=== PATIENT | female | born 1995 | race Caucasian/White ===

== ENCOUNTER 2021-09-25 06:32 | Emergency (ER) | payer SELFPAY ==
[2021-09-25 06:45] VITALS: TEMP 98.1; BMI 26.5
[2021-09-25] MEDS ORDERED: SODIUM CHLORIDE 1,000 ML IV STA (07:29)
[2021-09-25 08:34] LABS: BASO % 0.7 % (0-2.0); EOS % 0.2 % (0-4.5); HEMATOCRIT 41.7 % (32.4-45.2); HEMOGLOBIN 13.9 GM/dL (10.7-15.3); LYMPH % 17.5 % (8-40); MCH 28.9 pg (25.7-33.7); MCHC 33.2 g/dl (32.0-36.0); MEAN PLT VOLUME 8.3 fl (7.5-11.1); MONO % 7.5 % (3.8-10.2); NEUT % 74.1 % (42.8-82.8); PLATELET COUNT 244 10^3/uL (134-434); RBC 4.79 M/mm3 (3.60-5.2); RDW 13.2 % (11.6-15.6); WHITE BLOOD COUNT 8.4 K/mm3 (4.0-10.0)
[2021-09-25 08:43] LABS: INR 1.15 (0.83-1.09); PROTHROMBIN TIME (PATIENT) 13.3 SEC (9.7-13.0)
[2021-09-25 08:58] LABS: ACTIVATED PTT 34.5 SECONDS (25.2-36.5)
[2021-09-25 09:00] LABS: CALCIUM 9.3 mg/dL (8.5-10.1)
[2021-09-25 09:01] LABS: ALBUMIN 3.9 g/dl (3.4-5.0); BLOOD UREA NITROGEN 9.3 mg/dL (7-18)
[2021-09-25 09:04] LABS: CREATININE 0.6 mg/dL (0.55-1.3)
[2021-09-25 09:05] LABS: TOT PROT 7.2 g/dl (6.4-8.2)
[2021-09-25 09:06] LABS: BILIRUBIN,TOTAL 0.4 mg/dL (0.2-1)
[2021-09-25 09:44] LABS: EPI CELLS >36 /uL (0-25.1); HYALINE CASTS 0 /uL (0-3.1); PH,URINE 7.5 (5.0-8.0); URINE APPEARANCE CLOUDY; URINE BACTERIA 782 /uL (0-1359); URINE BILIRUBIN NEGATIVE (NEGATIVE); URINE COLOR YELLOW; URINE GLUCOSE (UA) NEGATIVE (NEGATIVE); URINE KETONE TRACE (NEGATIVE); URINE LEUK ESTERASE 2+ (NEGATIVE); URINE NITRITE NEGATIVE (NEGATIVE); URINE PROTEIN NEGATIVE (NEGATIVE); URINE RBC 6 /uL (0-23.9); URINE UROBILINOGEN 0.2 mg/dL (0.2-1.0); URINE WBC 41 /uL (0-25.8)
[2021-09-25 12:04] VITALS: BP 96/63; PULSE 71
[2021-09-25] MEDS ORDERED: CEPHALEXIN MONOHYDRATE 500 MG CAPSULE (UD) PO STA (12:06)
[2021-09-25] MEDS ORDERED: CEPHALEXIN MONOHYDRATE 500 MG CAPSULE (UD) ONE (12:25)
== END 2021-09-25 12:30 | disposition home or self-care (01) ==
LOC: JER 06:32
PROC: 3E0337Z Introduction of Electrolytic and Water Balance Substance into Peripheral Vein, Percutaneous Approach (ICD-10-PCS; principal; 2021-09-25)
DX: O26.899 Other specified pregnancy related conditions, unspecified trimester (principal); R55 Syncope and collapse; O23.40 Unspecified infection of urinary tract in pregnancy, unspecified trimester; Z3A.00 Weeks of gestation of pregnancy not specified
CPT/HCPCS: 36415; 76830-TC; 80053; 81003; 84484; 84702; 85025; 85610; 85730; 86850; 86900; 86901; 87077; 87086; 93005; 93010; 99285-25

== ENCOUNTER 2022-05-21 23:10 | Inpatient (IN) | payer OTHER ==
[2022-05-21] MEDS ORDERED: ELECTROLYTE-148 SOLN 1,000 ML IV SCH (23:15)
[2022-05-21] MEDS ORDERED: AMPICILLIN - 2 GM in SODIUM CHLORIDE 100 ML IVPB ONE (23:30)
[2022-05-21] MEDS ORDERED: AMPICILLIN SODIUM 2 GM VIAL ONE (23:34)
[2022-05-21 23:54] LABS: BASO % 0.2 % (0-2.0); EOS % 0.1 % (0-4.5); HEMATOCRIT 40.8 % (32.4-45.2); HEMOGLOBIN 13.5 GM/dL (10.7-15.3); LYMPH % 11.4 % (8-40); MCH 30.3 pg (25.7-33.7); MCHC 33.2 g/dl (32.0-36.0); MEAN CELL VOLUME 91.1 fl (80-96); MEAN PLT VOLUME 8.5 fl (7.5-11.1); MONO % 5.1 % (3.8-10.2); NEUT % 83.2 % (42.8-82.8); PLATELET COUNT 251 10^3/uL (134-434); RBC 4.48 M/mm3 (3.60-5.2); RDW 13.7 % (11.6-15.6); WHITE BLOOD COUNT 12.3 K/mm3 (4.0-10.0)
[2022-05-22] VITALS: BMI 32.9
[2022-05-22 00:01] LABS: INR 0.94 (0.83-1.09); PROTHROMBIN TIME (PATIENT) 10.8 SEC (9.7-13.0)
[2022-05-22 00:03] LABS: ACTIVATED PTT 25.4 SECONDS (25.2-36.5)
[2022-05-22 00:15] LABS: BLOOD UREA NITROGEN 3.8 mg/dL (7-18); CALCIUM 8.9 mg/dL (8.5-10.1)
[2022-05-22] MEDS ORDERED: FENTANYL/BUPIVACAINE/NS/PF - PCEA - 50 ML DISP.SYRIN EP ONE ×3 (00:16→10:43)
[2022-05-22 00:19] LABS: CREATININE 0.5 mg/dL (0.55-1.3)
[2022-05-22] MEDS ORDERED: NALOXONE HCL 0.4 MG/ML VIAL IVPUSH PRN ×2 (00:51→01:54)
[2022-05-22] MEDS ORDERED: FENTANYL/BUPIVACAINE/NS/PF - PCEA - 50 ML DISP.SYRIN EP SCH (01:00)
[2022-05-22] MEDS: FENTANYL/BUPIVACAINE/NS/PF - PCEA - 50 ML DISP.SYRIN EP SCH ×2 (01:30→11:30)
[2022-05-22] MEDS: AMPICILLIN - 1 GM in SODIUM CHLORIDE 100 ML IVPB SCH ×3 (03:30→11:30)
[2022-05-22] MEDS ORDERED: AMPICILLIN SODIUM 1 GM VIAL ONE ×3 (03:34→10:44)
[2022-05-22] MEDS ORDERED: OXYTOCIN 30 UNITS in 0.9% NS 30 UNIT/500 ML INFUS.BAG IVPB ONE (08:21)
[2022-05-22] MEDS ORDERED: OXYTOCIN 30 UNITS in 0.9% NS 30 UNIT/500 ML INFUS.BAG IVPB SCH (10:15)
[2022-05-22] MEDS ORDERED: morphine SULFATE/PF 1 MG/2 ML (2cc Syringe - QUVA) ONE (12:21)
[2022-05-22] MEDS ORDERED: PHENYLEPHRINE HCL 10 MG/1 ML SINGLE DOSE VIAL ONE (12:23)
[2022-05-22] MEDS ORDERED: OXYTOCIN 20 UNITS in 0.9% NS 20 UNIT/1,000 ML INFUS.BAG IV ONE (12:24)
[2022-05-22] MEDS ORDERED: ONDANSETRON 4 MG/2 ML VIAL ONE (12:30)
[2022-05-22] MEDS ORDERED: ceFAZolin SODIUM 1 GM VIAL ONE (12:41)
[2022-05-22] MEDS ORDERED: CITRIC ACID/SODIUM CITRATE 30 ML UNIT-DOSE CUP PO ONE (13:00)
[2022-05-22 14:08] LABS: CORD HCO3 29.5 mmHg (20-29); CORD PCO2 64.1 mmHg (30-78); CORD pH 7.281 (7.14-7.44)
[2022-05-22] MEDS ORDERED: ACETAMINOPHEN 325 MG TABLET (FP) PO PRN (14:18)
[2022-05-22] MEDS ORDERED: METHYLERGONOVINE MALEATE 0.2 MG/1 ML AMP IM PRN (14:18)
[2022-05-22] MEDS: OXYTOCIN 20 UNITS in 0.9% NS 20 UNIT/1,000 ML INFUS.BAG IV SCH (15:06)
[2022-05-22] MEDS: CEFAZOLIN 1 GM in DEXTROSE 5%-WATER - 50 ML IVPB SCH (18:39)
[2022-05-22] MEDS: IBUPROFEN 800 MG/8 ML IJ IVPB PRN (22:11)
[2022-05-23] MEDS ORDERED: oxyCODONE HCL 5 MG TABLET PO PRN (02:18)
[2022-05-23] MEDS: CEFAZOLIN 1 GM in DEXTROSE 5%-WATER - 50 ML IVPB SCH ×2 (03:14→10:20)
[2022-05-23] MEDS: OXYTOCIN 20 UNITS in 0.9% NS 20 UNIT/1,000 ML INFUS.BAG IV SCH (03:14)
[2022-05-23 09:19] LABS: BASO % 0.3 % (0-2.0); EOS % 0.7 % (0-4.5); HEMATOCRIT 34.4 % (32.4-45.2); HEMOGLOBIN 11.5 GM/dL (10.7-15.3); LYMPH % 10.7 % (8-40); MCH 30.7 pg (25.7-33.7); MCHC 33.4 g/dl (32.0-36.0); MEAN CELL VOLUME 92.1 fl (80-96); MEAN PLT VOLUME 8.7 fl (7.5-11.1); MONO % 9.6 % (3.8-10.2); NEUT % 78.7 % (42.8-82.8); PLATELET COUNT 191 10^3/uL (134-434); RBC 3.74 M/mm3 (3.60-5.2); RDW 13.8 % (11.6-15.6); WHITE BLOOD COUNT 10.3 K/mm3 (4.0-10.0)
[2022-05-23] MEDS: IBUPROFEN 800 MG/8 ML IJ IVPB PRN (11:34)
[2022-05-23] MEDS: SIMETHICONE 80 MG TAB.CHEW (FP) PO PRN ×3 (11:35→23:15)
[2022-05-23] MEDS: PRENATAL VITAMINS W/ FOLIC ACID TABLET (FP) PO SCH (11:35)
[2022-05-23] MEDS: ENOXAPARIN NA (PORCINE) 40 MG/0.4 ML DISP.SYRIN SQ SCH (11:36)
[2022-05-23] MEDS ORDERED: BISACODYL 10 MG SUPP.RECT RC PRN (14:18)
[2022-05-23] MEDS: IBUPROFEN 600 MG TABLET (FP) PO PRN ×2 (16:36→23:16)
[2022-05-23] MEDS: FERROUS SO4 325 MG TABLET (FP) PO SCH (21:05)
[2022-05-23] MEDS: SENNOSIDES/DOCUSATE COMBO (SENNA PLUS) TABLET (UD) PO PRN (21:06)
[2022-05-24] MEDS: SIMETHICONE 80 MG TAB.CHEW (FP) PO PRN ×4 (05:30→19:54)
[2022-05-24] MEDS: oxyCODONE HCL 5 MG TABLET PO PRN ×3 (05:31→14:28)
[2022-05-24] MEDS: PRENATAL VITAMINS W/ FOLIC ACID TABLET (FP) PO SCH (10:19)
[2022-05-24] MEDS: FERROUS SO4 325 MG TABLET (FP) PO SCH ×2 (10:19→21:13)
[2022-05-24] MEDS: ENOXAPARIN NA (PORCINE) 40 MG/0.4 ML DISP.SYRIN SQ SCH (10:22)
[2022-05-24] MEDS: SENNOSIDES/DOCUSATE COMBO (SENNA PLUS) TABLET (UD) PO PRN (19:54)
[2022-05-24] MEDS: IBUPROFEN 600 MG TABLET (FP) PO PRN (19:54)
[2022-05-24 21:12] VITALS: RESP 18
[2022-05-25] MEDS: IBUPROFEN 600 MG TABLET (FP) PO PRN ×2 (04:00→10:34)
[2022-05-25 09:33] VITALS: BP 97/62; PULSE 80; TEMP 98
[2022-05-25 09:45] LABS: BASO % 0.3 % (0-2.0); EOS % 2.9 % (0-4.5); HEMATOCRIT 34.8 % (32.4-45.2); HEMOGLOBIN 11.6 GM/dL (10.7-15.3); LYMPH % 21.6 % (8-40); MCH 30.5 pg (25.7-33.7); MCHC 33.2 g/dl (32.0-36.0); MEAN CELL VOLUME 91.8 fl (80-96); MONO % 6.7 % (3.8-10.2); NEUT % 68.5 % (42.8-82.8); PLATELET COUNT 247 10^3/uL (134-434); RDW 14.2 % (11.6-15.6)
[2022-05-25] MEDS: FERROUS SO4 325 MG TABLET (FP) PO SCH (10:34)
[2022-05-25] MEDS: SIMETHICONE 80 MG TAB.CHEW (FP) PO PRN (10:34)
[2022-05-25] MEDS: PRENATAL VITAMINS W/ FOLIC ACID TABLET (FP) PO SCH (10:34)
[2022-05-25] MEDS: ENOXAPARIN NA (PORCINE) 40 MG/0.4 ML DISP.SYRIN SQ SCH (10:35)
== END 2022-05-25 11:20 | disposition home or self-care (01) | DRG 540 ==
LOC: JLDR 23:10 → J3W 05-22 17:45
PROVIDERS: ADMIT Obstetrics & Gynecology; ATTEND Obstetrics & Gynecology
PROC: 10907ZC Drainage of Amniotic Fluid, Therapeutic from Products of Conception, Via Natural or Artificial Opening (ICD-10-PCS; principal; 2022-05-22)
PROC: 10D00Z1 Extraction of Products of Conception, Low, Open Approach (ICD-10-PCS; 2022-05-22)
DX: O62.2 Other uterine inertia (principal); O99.214 Obesity complicating childbirth; E66.9 Obesity, unspecified; O99.824 Streptococcus B carrier state complicating childbirth; Z3A.39 39 weeks gestation of pregnancy; Z37.0 Single live birth
CPT/HCPCS: 36415; 36600; 59025; 80048; 82803; 85025; 85610; 85730; 86780; 86850; 86900; 86901; 88307-TC; C9803-CS; U0003; U0005